=== PATIENT | male | born 1950 | race Caucasian/White ===

== ENCOUNTER → 2023-08-16 06:43 | Outpatient (REF) | payer MEDICARE, OTHER, SELFPAY ==
[2023-08-16 07:18] LABS: % Basophils 2.2 % (0-2); % Eosinophils 4.8 % (0-6); % Immature Granulocytes 0.2 % (0-0.5); % Lymphocytes 33.6 % (20.5-51.1); % Monocytes 12.7 % (1.7-9.3); % Neutrophils 46.5 % (42.2-75.2); Absolute Basophils 0.1 10^3/uL (0-0.2); Absolute Eosinophils 0.2 10^3/uL (0-0.7); Absolute Lymphocytes 1.5 10^3/uL (1.2-3.4); Absolute Monocytes 0.6 10^3/uL (0.1-0.6); Absolute Neutrophils 2.1 10^3/uL (1.4-6.5); Hematocrit 36.9 % (39.0-52.0); Hemoglobin 13.1 g/dL (13.0-18.0); Mean Corp Hgb Conc. 35.5 g/dL (33.0-37.0); Mean Corpuscular Hgb 32.2 pg (27.0-31.0); Mean Corpuscular Volume 90.7 fL (80.0-94.0); Mean Platelet Volume 8.8 fL (7.4-10.4); Nucleated Red Blood Cells % 0 % (-); Platelet Count 266 10^3/uL (130-400); Red Blood Cell Count 4.07 10^6/uL (4.70-6.10); White Blood Cell Count 4.6 10^3/uL (4.8-10.8)
[2023-08-16 07:33] LABS: ALT (SGPT) 16 U/L (0-50); AST (SGOT) 25 U/L (17-59); Albumin 4.2 g/dl (3.5-5.0); Alkaline Phosphatase 65 U/L (38-126); Blood Urea Nitrogen 21 mg/dl (9-20); Calcium 9.7 mg/dl (8.4-10.2); Carbon Dioxide 29 mmol/L (22-30); Chloride 100 mmol/L (98-107); Glucose 99 mg/dl (70-99); HDL Cholesterol 73 mg/dl; LDL Cholesterol, Calculated 118 mg/dl; Potassium 4.2 mmol/L (3.5-5.1); Sodium 139 mmol/L (135-145); Total Bilirubin 0.9 mg/dl (0.2-1.3); Total Cholesterol 204 mg/dl (50-199); Total Protein 7.1 g/dl (6.3-8.2); Triglyceride 68 mg/dl (10-149); Very Low Density Lipoprotein 13 mg/dl (0-30); eGFR > 60.00
[2023-08-16 07:58] LABS: PSA, Total - Screen 0.28 ng/ml (0.0-4.0)
[2023-08-16 08:17] LABS: Vitamin B12 628 pg/ml (239-931)
== END ==
LOC: REG 06:43
PROVIDERS: ATTENDING PHYSICIAN Family Medicine
DX: Z00.00 Encounter for general adult medical examination without abnormal findings (principal); D64.9 Anemia, unspecified; I10 Essential (primary) hypertension; Z13.1 Encounter for screening for diabetes mellitus; E78.2 Mixed hyperlipidemia; E53.8 Deficiency of other specified B group vitamins; Z12.5 Encounter for screening for malignant neoplasm of prostate
CPT/HCPCS: 36415; 80053; 80061; 82607; 85025; G0103

== ENCOUNTER → 2024-02-14 06:49 | Outpatient (REF) | payer MEDICARE, OTHER, SELFPAY ==
[2024-02-14 08:03] LABS: % Basophils 1.7 % (0-2); % Eosinophils 5.7 % (0-6); % Immature Granulocytes 0.2 % (0-0.5); % Lymphocytes 32.4 % (20.5-51.1); % Monocytes 10.8 % (1.7-9.3); % Neutrophils 49.2 % (42.2-75.2); Absolute Basophils 0.1 10^3/uL (0-0.2); Absolute Eosinophils 0.2 10^3/uL (0-0.7); Absolute Lymphocytes 1.3 10^3/uL (1.2-3.4); Absolute Monocytes 0.4 10^3/uL (0.1-0.6); Hematocrit 32.2 % (39.0-52.0); Hemoglobin 11.5 g/dL (13.0-18.0); Mean Corp Hgb Conc. 35.7 g/dL (33.0-37.0); Mean Corpuscular Hgb 32.4 pg (27.0-31.0); Mean Corpuscular Volume 90.7 fL (80.0-94.0); Mean Platelet Volume 9.1 fL (7.4-10.4); Nucleated Red Blood Cells % 0 % (-); Platelet Count 268 10^3/uL (130-400); Red Blood Cell Count 3.55 10^6/uL (4.70-6.10); Red Cell Dist. Width 12.8 % (11.5-14.5); White Blood Cell Count 4.1 10^3/uL (4.8-10.8)
[2024-02-14 08:22] LABS: ALT (SGPT) 15 U/L (0-50); AST (SGOT) 28 U/L (17-59); Albumin 4.5 g/dl (3.5-5.0); Alkaline Phosphatase 67 U/L (38-126); Blood Urea Nitrogen 23 mg/dl (9-20); Calcium 9.6 mg/dl (8.4-10.2); Carbon Dioxide 25 mmol/L (22-30); Chloride 104 mmol/L (98-107); Glucose 87 mg/dl (70-99); HDL Cholesterol 63 mg/dl; LDL Cholesterol, Calculated 109 mg/dl; Potassium 4.7 mmol/L (3.5-5.1); Sodium 137 mmol/L (135-145); Total Bilirubin 0.7 mg/dl (0.2-1.3); Total Cholesterol 182 mg/dl (50-199); Total Protein 6.9 g/dl (6.3-8.2); Triglyceride 54 mg/dl (10-149); Very Low Density Lipoprotein 10 mg/dl (0-30); eGFR > 60.00
[2024-02-14 08:49] LABS: PSA, Total - Screen 0.31 ng/ml (0.0-4.0)
[2024-02-14 09:08] LABS: Vitamin B12 758 pg/ml (239-931)
[2024-02-15 13:36] LABS: Iron 94 ug/dl (49-181)
[2024-02-15 13:46] LABS: Percent Saturation 33 % (20-50); Total Iron Binding Capacity 280 ug/dl (261-462)
== END ==
LOC: REG 06:49
PROVIDERS: ATTENDING PHYSICIAN Family Medicine
DX: Z00.00 Encounter for general adult medical examination without abnormal findings (principal); Z12.5 Encounter for screening for malignant neoplasm of prostate; E53.8 Deficiency of other specified B group vitamins; E78.2 Mixed hyperlipidemia; I10 Essential (primary) hypertension; Z13.1 Encounter for screening for diabetes mellitus; D64.9 Anemia, unspecified
CPT/HCPCS: 36415; 80053; 80061; 82607; 82728; 83540; 83550; 85025; G0103

== ENCOUNTER → 2024-08-21 07:05 | Outpatient (REF) | payer MEDICARE, OTHER, SELFPAY ==
[2024-08-21 08:44] LABS: % Basophils 0.7 % (0-2); % Eosinophils 2.8 % (0-6); % Immature Granulocytes 0.2 % (0-0.5); % Lymphocytes 25.4 % (20.5-51.1); % Monocytes 11.8 % (1.7-9.3); % Neutrophils 59.1 % (42.2-75.2); Absolute Eosinophils 0.1 10^3/uL (0-0.7); Absolute Lymphocytes 1.1 10^3/uL (1.2-3.4); Absolute Monocytes 0.5 10^3/uL (0.1-0.6); Absolute Neutrophils 2.6 10^3/uL (1.4-6.5); Hematocrit 36.1 % (39.0-52.0); Hemoglobin 12.4 g/dL (13.0-18.0); Mean Corp Hgb Conc. 34.3 g/dL (33.0-37.0); Mean Corpuscular Hgb 31.8 pg (27.0-31.0); Mean Corpuscular Volume 92.6 fL (80.0-94.0); Nucleated Red Blood Cells % 0 % (-); Platelet Count 266 10^3/uL (130-400); White Blood Cell Count 4.3 10^3/uL (4.8-10.8)
[2024-08-21 09:14] LABS: Iron 85 ug/dl (49-181)
[2024-08-21 11:34] LABS: Percent Saturation 25 % (20-50); Total Iron Binding Capacity 332 ug/dl (261-462)
== END ==
LOC: REG 07:05
PROVIDERS: ATTENDING PHYSICIAN Family Medicine
DX: D64.9 Anemia, unspecified (principal)
CPT/HCPCS: 36415; 82728; 83540; 83550; 85025

== ENCOUNTER → 2025-02-26 06:58 | Outpatient (REF) | payer MEDICARE, OTHER, SELFPAY ==
[2025-02-26 07:59] LABS: Hematocrit 34.1 % (39.0-52.0); Hemoglobin 11.8 g/dL (13.0-18.0); Mean Corp Hgb Conc. 34.6 g/dL (33.0-37.0); Mean Corpuscular Volume 92.4 fL (80.0-94.0); Nucleated Red Blood Cells % 0 % (-); Platelet Count 249 10^3/uL (130-400); Red Cell Dist. Width 12.2 % (11.5-14.5)
[2025-02-26 08:55] LABS: Blood Urea Nitrogen 31 mg/dl (9-20); Calcium 9.3 mg/dl (8.4-10.2); Carbon Dioxide 26 mmol/L (22-30); Chloride 102 mmol/L (98-107); Glucose 93 mg/dl (70-99); Potassium 4.8 mmol/L (3.5-5.1); Sodium 138 mmol/L (135-145); eGFR > 60.00
[2025-02-26 09:15] LABS: PSA, Total - Screen 0.30 ng/ml (0.0-4.0)
== END ==
LOC: REG 06:58
PROVIDERS: ATTENDING PHYSICIAN Family Medicine
DX: D64.9 Anemia, unspecified (principal); D72.819 Decreased white blood cell count, unspecified; Z12.5 Encounter for screening for malignant neoplasm of prostate; I10 Essential (primary) hypertension
CPT/HCPCS: 36415; 80048; 85025; G0103

== ENCOUNTER 2025-03-03 11:39 | Emergency (ER) | payer MEDICARE, OTHER, SELFPAY ==
[2025-03-03 11:41] VITALS: BP 114/75
[2025-03-03 13:10] VITALS: BP 126/70
[2025-03-03 14:00] VITALS: BP 101/62
--- NOTE | 2025-03-03 14:18 | ED.GENMED ---
History of Present Illness
General
Chief Complaint: Fall
Source: patient
Exam Limitations: none
Time Seen by Provider: 03/03/25 13:45
Nursing documentation reviewed up to this point in time: agreed with
History of Present Illness
History of Present Illness:
74-year-old male with history of hypertension who presents to the ER with his for evaluation of fall with head strike and a facial asymmetry. Patient reports that he was walking in the dark in the upstairs of his house yesterday evening when
he tripped and fell forward. He says he hit his head/face on a door frame, struck his knee on a nearby desk. He says he fell down to the ground but did not pass out. He was able to get up with the assistance of his and she helped him
downstairs. He had an abrasion to the forehead/frontal scalp that was bleeding and so he went over to the sink to clean up. While he was leaning over the sink he had some mild lightheadedness and says that he seemed out of it for a few
moments. Ultimately she helped him to the bathroom to wash up and he went bed. This morning he had a mild headache and noticed some facial asymmetry and brought him to the emergency room to be assessed. He denies any neck pain. Denies any
back pain. Denies any chest or abdominal pain. He denies any pain in his extremities�he did strike his knee on a desk but did not sustain serious injury only minor abrasion. He denies any change in his vision, speech difficulties. Denies any
numbness or weakness in his extremities. He is not on any blood thinners.
Past History
Past History
ED Past Medical History: None; Negative Asthma, HTN, Hypercholesterolemia or NIDDM
ED Past Surgical History: Other (Hernia repair)
Social History
Tobacco: Non-smoker
Alcohol: Occasional
Personal:
Living: with family
Employment: Employed (Self employed)
Review of Systems
Review of Systems
All Other Systems: ROS reviewed and negative except as documented in HPI and ROS
Constitutional: Denies fever
Respiratory: Denies trouble breathing
Cardiac: Denies chest pain
ABD/GI: Denies abdominal pain, nausea or vomiting
: Denies flank pain
Musculoskeletal: Denies joint pain, neck pain or back pain
Neurological: Reports dizzy (Transient) and headache; Denies weakness or numbness
Phy Exam
Physical Exam
Physical Exam:
General: Awake, alert, oriented x3; no acute distress
Head: Normocephalic, patient has minor abrasion to the frontal scalp as well as bruise to the crown of the head that no lacerations to the scalp noted; on exam of his face he has some mild swelling along the left jawline but no significant
tenderness and no bruising
Eyes: Conjunctiva normal, EOMI, pupils equal round reactive to light bilaterally, visual molina are intact
Throat: Airway intact, handling secretions, no dental trauma noted, no tongue trauma
Neck: Trachea midline, no cervical spine tenderness, good range of motion without pain
Back: No signs of trauma to the back or flank and no tenderness in the thoracic or lumbar spine or in the posterior ribs
Lungs: Clear to auscultation bilaterally, no wheezing, rales, rhonchi
Heart: Regular rate and rhythm, no murmurs, gallops, or rubs; no chest wall tenderness
Abd: Soft, non distended, nontender
Neuro: Cranial nerves are intact 2 through 12�while there is some slight asymmetry of the face that is because there is some swelling along the left jawline�he has no drooping of the corner of the mouth, no ptosis and good strength and symmetry on
smile, eyebrow raise; speech is fluent there is no dysarthria or aphasia; no limb ataxia; motor and sensory intact in all extremities
Extremities: Minor abrasion of the left knee but no joint effusion and no bruising, no tenderness along the left knee; rest of extremities are atraumatic; no edema in extremities, equal pulses in all extremities
Scores
Heart Failure Risk
Heart Failure Risk Score: Not Applicable
Heart Score for Chest Pain Patients
STEMI patient?: Not applicable
Withdrawal Assessment of Alcohol
Withdrawal Assessment Completed?: Not applicable
Course
Orders/Labs/Results
Orders:
Orders
03/03/25 11:44
Electrocardiogram (*1) Urgent
Reason for Study: Vertigo / Dizzy
EKG- Treatment ONCE
03/03/25 14:02
CT Facial Bones W/o Iv Contras Urgent
Comment:
Reason For Exam: left facial swelling (jaw line)
CT Head W/o Iv Contrast Urgent
Comment:
Reason For Exam: facial assymetry, headache s/p frontal head strike
03/03/25 14:18
Basic Metabolic Panel Urgent
Complete Blood Count/With Diff Urgent
Abnormal Lab Results
03/03/25
14:18
RBC 3.65 L 10^6/uL
(4.70-6.10)
Hgb 11.9 L g/dL
(13.0-18.0)
Hct 32.7 L %
(39.0-52.0)
MCH 32.6 H pg
(27.0-31.0)
Absolute Lymphs (auto) 1.1 L 10^3/uL
(1.2-3.4)
Absolute Monos (auto) 0.8 H 10^3/uL
(0.1-0.6)
Lymphocytes % 14.1 L %
(20.5-51.1)
Monocytes % 10.1 H %
(1.7-9.3)
Sodium 134 L mmol/L
(135-145)
BUN 31 H mg/dl
(9-20)
03/03/25 14:18
03/03/25 14:18
Vital Signs
Initial and Last Documented VS:
Initial Vital Signs
Temp Pulse Resp BP Pulse Ox
36.8 C 103 16 114/75 97
03/03/25 11:41 03/03/25 11:41 03/03/25 11:41 03/03/25 11:41 03/03/25 11:41
Last Documented Vital Signs
Temp Pulse Resp BP Pulse Ox
36.8 C 82 12 101/74 98
03/03/25 11:41 03/03/25 15:00 03/03/25 15:00 03/03/25 15:00 03/03/25 15:00
MDM/Problems Addressed
Differential Diagnosis Includes:
Facial asymmetry/jaw swelling: Facial contusion, mandibular fracture, sialolithiasis
Headache: Concussion, head contusion, brain bleed
MDM/Problems Addressed:
74-year-old male presents for evaluation after fall with head strike as described above. Vitals and exam as above. There was some concern about facial asymmetry but this appears to be from some swelling along the left mandibular region rather than
from true facial droop. Plan to place an IV will check basic labs including a CBC and a CMP after transient episode of dizziness last night although I suspect this may have been vasovagal related to bleeding versus posttraumatic. Will plan to
check EKG. Will check CT of the head as well as the facial bones. Will monitor and reassess after the above.
Labs reviewed no clinically significant abnormalities. CT head negative for any acute pathology. CT facial bone does show some swelling around the left mandible but no fracture. Suspect contusion. Patient stable on reassessment, stable for
discharge. Advised ice to the area. Follow-up with PCP. Patient comfortable with this plan. All questions answered.
Chronic conditions affecting care:
Hypertension
*Radiology
Radiology exam reviewed: radiology read reviewed
*Pulse Oximetry
SaO2: 97
Oxygen Mode of Delivery: Room air
Patient hypoxic: no (97%)
*EKG
Interpreted by ED Provider?: Yes
Heart Rate: 100
Rate: normal
Rhythm: sinus
Parrott: normal axis
Interval: normal interval
QRS Pattern: normal QRS
Ischemia: no ischemia
*Critical Care Note
Total Time (30-74mins, 75-104mins- exclusive of procedures): Not Applicable
Data Reviewed
Source: patient and spouse
ED Attending Note
-
Portions of this chart may have been created with voice recognition software.� Occasional wrong word or��sound alike� substitutions may have occurred due to the inherent limitations of voice recognition software.
Discharge Plan
Departure
Patient Disposition: Home (Routine Discharge)
Date of Disposition: 03/03/25
Time of Disposition: 16:35
Patient with high blood pressure during this ER visit?: No
Discharge Problem:
Contusion of face, Abrasion of scalp
Instructions: Head Injury in Adults (DC), Contusion (DC), Skin Abrasions (DC)
Referrals:
Barbara Hood MD [Family Provider, [facility]] - Follow up in 5-7 days
Activity Restrictions/Additional Instructions:
Thank you for visiting the Emergency Department at [facility].
1. Please schedule a follow up appointment as directed. Call first thing tomorrow morning to make an appointment.
2. If indicated, please take your medications as instructed and indicated on discharge paperwork.
3. If any of your symptoms do not improve, or persist, or become more severe within 6-12 hours, please return to the emergency department for further care.
4. Please return to the emergency department if you develop a headache, neck pain/stiffness, fever greater than 100.4F, chest pain, shortness of breath, persistent nausea, vomiting, slurred speech, difficulty walking, numbness/tingling, weakness,
signs of infection or any other symptoms that are worrisome to you.
Please call [phone] if you have any questions.
Interventions
Interventions:
*Risk Screen - Suicide Last Done: 03/03/25 11:44
*General Assessment Last Done: 03/03/25 13:28
*Neglect/Abuse Screening Last Done: 03/03/25 11:44
*ED COVID-19 Vaccine History Last Done: 03/03/25 13:28
ED-Musculoskeletal Assessment Last Done: 03/03/25 13:28
ED- Neurological Assessment Last Done: 03/03/25 13:28
ED-Skin Assessment Last Done: 03/03/25 13:28
Discharge Date and Time
Print Language: SYRIAN
[2025-03-03 14:26] LABS: Hematocrit 32.7 % (39.0-52.0); Hemoglobin 11.9 g/dL (13.0-18.0); Mean Corp Hgb Conc. 36.4 g/dL (33.0-37.0); Mean Corpuscular Volume 89.6 fL (80.0-94.0); Nucleated Red Blood Cells % 0 % (-); Platelet Count 223 10^3/uL (130-400); Red Cell Dist. Width 12.3 % (11.5-14.5)
[2025-03-03 14:59] LABS: Blood Urea Nitrogen 31 mg/dl (9-20); Calcium 9.8 mg/dl (8.4-10.2); Carbon Dioxide 25 mmol/L (22-30); Chloride 103 mmol/L (98-107); Glucose 95 mg/dl (70-99); Sodium 134 mmol/L (135-145); eGFR > 60.00
[2025-03-03 15:00] VITALS: BP 101/74
== END 2025-03-03 16:59 | disposition home or self-care (01) ==
LOC: EMR 11:39
PROVIDERS: EMERGENCY PHYSICIAN Emergency Medicine; FAMILY PHYSICIAN Family Medicine
DX: S00.83XA Contusion of other part of head, initial encounter (principal); S00.01XA Abrasion of scalp, initial encounter; W01.0XXA Fall on same level from slipping, tripping and stumbling without subsequent striking against object, initial encounter; Y93.01 Activity, walking, marching and hiking; Y92.009 Unspecified place in unspecified non-institutional (private) residence as the place of occurrence of the external cause; I10 Essential (primary) hypertension
CPT/HCPCS: 99284; 70450; 70486; 80048; 85025; 93005